=== PATIENT | male | born 1985 | race Two or more races ===

== ENCOUNTER 2018-11-30 00:19 | Emergency (ER) | payer BC ==
[2018-11-30] MEDS ORDERED: Amoxicillin/Clavulanate TAB* 875 MG PO ONE (01:04)
[2018-11-30] MEDS ORDERED: amLODIPine TAB* 5 MG PO ONE (01:04)
--- NOTE | 2018-11-30 01:08 | ED ---
Throat Pain/Nasal Congestion - HPI Summary HPI Summary: 33 year old male presents with sinus pain for the past week. He states that symptoms have been getting worse. He states he started Afrin 3 days ago and his symptoms did not improve. He has not taken afrin for more than 3 days. He states he took old prescription of Keflex that started 2 days ago and has had no improvement. He denies any fevers. He states he has a lot of pressure in his sinuses. Also notes dental pain due to the sinus infection. No sore throat. Admits occasional cough. No chest pain or shortness breath. Has history of high blood pressure and is not currently taking his medications. He does not currently have a primary. - History of Current Complaint Chief Complaint: EDUpperRespComplaint Time Seen by Provider: 11/30/18 00:48 - Allergies/Home Medications Allergies/Adverse Reactions: Allergies Allergy/AdvReac Type Severity Reaction Status Date / Time No Known Allergies Allergy Verified 11/30/18 00:27 PMH/Surg Hx/FS Hx/Imm Hx Endocrine/Hematology History: Denies: Hx Anticoagulant Therapy Cardiovascular History: Reports: Hx Hypertension Respiratory History: Denies: Hx Asthma Infectious Disease History: No Infectious Disease History: Denies: Traveled Outside the [place] in Last 30 Days - Family History Known Family History: Positive: Non-Contributory - Social History Substance Use Type: Reports: None Review of Systems Negative: Fever Positive: Nasal Discharge Negative: Chest Pain Negative: Shortness Of Breath All Other Systems Reviewed And Are Negative: Yes Physical Exam Triage Information Reviewed: Yes Vital Signs On Initial Exam: Initial Vitals Temp Pulse Resp BP Pulse Ox 97.4 F 89 18 206/117 98 11/30/18 00:20 11/30/18 00:20 11/30/18 00:20 11/30/18 00:20 11/30/18 00:20 Vital Signs Reviewed: Yes Appearance: Positive: Well-Appearing Skin: Positive: Warm, Dry Head/Face: Positive: Normal Head/Face Inspection Eyes: Positive: Normal, EOMI, THOM, Conjunctiva Clear ENT: Positive: Pharynx normal, Nasal congestion, TMs normal, Sinus tenderness Neck: Positive: Supple, Nontender, No Lymphadenopathy Respiratory/Lung Sounds: Positive: Clear to Auscultation, Breath Sounds Present Cardiovascular: Positive: Normal, RRR Musculoskeletal: Positive: Normal Neurological: Positive: Normal Psychiatric: Positive: Normal Diagnostics - Vital Signs Vital Signs Temp Pulse Resp BP Pulse Ox 11/30/18 00:20 97.4 F 89 18 206/117 98 - Laboratory Lab Statement: Any lab studies that have been ordered have been reviewed, and results considered in the medical decision making process. EENT Course/Dx - Course Course Of Treatment: 33 year old male presents with sinus pain for the past week. He states that symptoms have been getting worse. He states he started Afrin 3 days ago and his symptoms did not improve. He has not taken afrin for more than 3 days. He states he took old prescription of Keflex that started 2 days ago and has had no improvement. He denies any fevers. He states he has a lot of pressure in his sinuses. Also notes dental pain due to the sinus infection. No sore throat. Admits occasional cough. No chest pain or shortness breath. Has history of high blood pressure and is not currently taking his medications. He does not currently have a primary. On exam sinus tenderness noted. Pharynx normal. Lungs clear auscultation. Will treat with sinus infection with Augmentin. Gave Flonase. Told stop Afrin. Will start patient on Norvasc told to est care with primary. Patient understands agrees plan. - Differential Diagnoses Differential Diagnoses: Pharyngitis, Sinusitis, URI/Bronchitis - Diagnoses Provider Diagnoses: Sinusitis, Hypertension Discharge - Sign-Out/Discharge Documenting (check all that apply): Patient Departure Patient Received Moderate/Deep Sedation with Procedure: No - Discharge Plan Condition: Good Disposition: HOME Prescriptions: amLODIPine TAB* [Norvasc 5 mg TAB*] 5 mg PO DAILY #14 tab Amoxicillin/Clavulanate TAB* [Augmentin TAB 875*] 875 mg PO BID #19 tab Fluticasone NASAL SPRAY 50MCG* [Flonase NASAL SPRAY 50MCG*] 2 spray BOTH NARES DAILY #1 btl Patient Education Materials: Sinusitis (ED) Referrals: [facility] [place] [Outside] [facility] [place] [place] [facility] [Outside] Additional Instructions: Take antibiotic twice a day for 10 days, first dose given in ED use flonase twice a day each nostril Use saline spray in nose as much as needed Use OTC decongestions take Norvasc once a day for blood pressure establish care with primary Return to ED with any new or worsening symptoms - Billing Disposition and Condition Condition: GOOD Disposition: Home
[2018-11-30 02:10] VITALS: BP 180/111
== END 2018-11-30 02:09 | disposition home or self-care (01) ==
LOC: ED 00:19
DX: J32.9 Chronic sinusitis, unspecified (principal); I10 Essential (primary) hypertension
CPT/HCPCS: 99282; A9270-GY